=== PATIENT | female | born 1985 | race Caucasian/White ===

== ENCOUNTER 2016-10-17 06:05 | Inpatient (IN) | payer MEDICAID ==
[~2016-10-17] VITALS: Ht 137.2 cm; Wt 66.5 kg
[2016-10-17] VITALS (7 sets, daily range): BP systolic 93–108; BP diastolic 51–69; PULSE 68–78; RESP 16–18
[2016-10-17] MEDS ORDERED: PRENAT PO (06:41)
[2016-10-17] MEDS ORDERED: FERR134T PO (06:41)
[2016-10-17] MEDS: LACTATED RINGER'S 1,000 ML IV SCH ×2 (06:57→22:42)
[2016-10-17] MEDS ORDERED: CEFAZOLIN 2 GM/50 ML (PMX) 50 ML IV SCH (07:00)
[2016-10-17] MEDS ORDERED: MISOPROSTOL 200 MCG TAB PR PRN ×2 (07:00→12:00)
[2016-10-17] MEDS ORDERED: OXYTOCIN 30 UNITS/LR 500 ML IV SCH (07:00)
[2016-10-17] MEDS ORDERED: OXYTOCIN 30 UNITS/LR 500 ML IV PRN ×2 (07:00→12:00)
[2016-10-17] MEDS ORDERED: CARBOPROST 250 MCG INJ IM PRN ×2 (07:00→12:00)
[2016-10-17] MEDS ORDERED: METHYLERGONOVINE 0.2 MG INJ IM PRN ×2 (07:00→12:00)
[2016-10-17 07:21] LABS: ADD SCAN DIFF NO
[2016-10-17 07:39] LABS: ABNORMAL IP MESSAGE 1; BASOPHILS % 0.3 % (0.0-2.0); EOSINOPHILS # 0.1 10^3/ul (0.0-0.5); EOSINOPHILS % 0.9 % (0.0-7.0); HEMOGLOBIN 12.9 g/dl (12.0-16.0); LYMPHOCYTES # 1.7 10^3/ul (0.8-2.9); LYMPHOCYTES % 28.8 % (15.0-51.0); MEAN CORPUSCULAR HEMOGLOBIN 29.8 pg (29.0-33.0); MEAN CORPUSCULAR HGB CONC 33.9 g/dl (32.0-37.0); MEAN CORPUSCULAR VOLUME 87.8 fl (82.0-101.0); MEAN PLATELET VOLUME 13.9 fl (7.4-10.4); MONOCYTE # 0.5 10^3/ul (0.3-0.9); MONOCYTES % 8.3 % (0.0-11.0); NEUTROPHIL # 3.5 10^3/ul (1.6-7.5); PLATELET COUNT 100 10^3/UL (140-415); RED BLOOD COUNT 4.33 10^6/ul (4.20-5.40); RED CELL DISTRIBUTION WIDTH 14.4 % (11.5-14.5); WHITE BLOOD COUNT 5.8 10^3/ul (4.8-10.8)
[2016-10-17 07:51] LABS: INR 0.91; PARTIAL THROMBOPLASTIN TIME 25.4 Sec (25.0-35.0); PROTIME 12.3 Sec (12.2-14.2)
[2016-10-17] MEDS ORDERED: PHENYLephrine (100 MCG/ML) 5ML SYG ONE (07:59)
[2016-10-17] MEDS ORDERED: ONDANSETRON 4 MG INJ ONE (07:59)
[2016-10-17] MEDS ORDERED: morphine SULFATE/PF (10 MG/10 ML) INJ ONE (07:59)
[2016-10-17] MEDS ORDERED: OXYTOCIN 10 UNIT INJ ONE (07:59)
--- NOTE | 2016-10-17 09:39 | HP ---
Date/Time of Note Date/Time of Note DATE: 10/17/16 TIME: 09:31 OB - History Hx of Present Free Text/Dictation 30 years old female 5 para 2 history of 2 previous section with a EDC of October 24 admitted to [facility] for repeat section and bilateral tubal ligation this patient has been under the care of the [facility] and her was not complicated with gestational diabetes -induced hypertension or any other serious surgical or medical condition patient has been counseled regarding the failure rate of tubal ligation increased risk of ectopic future failure to conceive also the complication of the section for the third time including but not limited to bowel and bladder injury infection wound hematoma and hemorrhage ,she would like to proceed with the operation. o Estimated Due Date: October 24, 2016 : 5 Para: 2 Spontaneous : 2 Care: Good Care Ultrasounds: Normal mid trimester US Obstetrical Complications: None Medical Complications: None Past Family/Social History * Past Medical, Surgical, Family and Obstetric Histories reviewed from chart. Rubella: immune RPR/VDRL: Negative GBS Status: Negative HBsAG: Negative OB Admission Exam Vital Signs Vital Signs Vital Signs Date Time Temp Pulse Resp B/P Pulse Ox O2 Delivery O2 Flow Rate FiO2 10/17/16 06:39 98.1 71 108/69 Physical Exam HEENT: WNL Heart: Rhythm Normal Lungs: Clear, Equal Abdomen: WNL Extremities: Normal Reflexes: Normal Cervical Dilatation: None Effacement: 0% Station: -1 Membranes: Intact Heart Rate: 130's Accelerations: Accelerations Present Decelerations: No Decelerations Varibility: Absent Last 72 hours Lab Results CBC & BMP 10/17/16 06:15 OB Assessment/Plan Reason for admission: other (Repeat section bilateral tubal ligation) Plan: Section (Repeat section bilateral tubal ligation) ROXANNE YARBROUGH MD October 17, 2016 09:39
--- NOTE | 2016-10-17 11:07 | OPR ---
DATE OF OPERATION: 10/17/2016 PREOPERATIVE DIAGNOSES: 1. Intrauterine at 39 weeks' gestation. 2. History of previous section. 3. Request for voluntary sterilization, bilateral tubal ligation. POSTOPERATIVE DIAGNOSES: 1. Intrauterine at 39 weeks' gestation. 2. History of previous section. 3. Request for voluntary sterilization, bilateral tubal ligation. OPERATION PERFORMED: Repeat transverse low cervical section. SURGEON: Roxanne Madrid MD ETHYLBENZENE CONVERTER HELPER: James Ellsworth MD ANESTHESIA: Spinal. ANESTHESIOLOGIST: Dr. Santiago. FINDINGS: Live baby boy with the 9 and 9. Baby weighed at 3710 grams, 8 pounds 3 ounces. DETAILS OF THE PROCEDURE: Under satisfactory spinal anesthesia, the patient was prepped and draped and placed in dorsal lithotomy position. Pfannenstiel incision was done. Old scar was removed. Incision carried through the subcutaneous ti ssue. Bleeders brought under control with electrocautery. Fascia incised to the length of the inci víctor. Rectus muscle divided in midline. Peritoneum exposed, entered through a transverse incision. Exploration of abdomen shows gravid at term uterus, normal appearing tubes and ovaries Adhesions bet ween the right round ligament and anterior abdominal wall which were taken down by sharp dissection. Suture material used #0 chromic catgut. Lower segment of the uterus was freed from the adhesions. Bladder flap was developed. Transverse incision was made in the lower segment of the uterus. Amn iotic sac ruptured. Clear amniotic fluid noted. Live baby boy was delivered from unengaged vertex. Nasal oropharyngeal suction was performed. Baby handed to the team for immediate attenti on. Patient received 20 units of Pitocin. Placenta delivered manually intact. Uterine cavity cleaned w ith wet sponge and drainage established. Uterus closed in 2 layers using Monocryl #1 in continuous fashion. Bilateral tubal ligation performed by identifying the ampulla and fimbria section of the right fallo pian tube. Suture material used #0 plain catgut which was reinforced with the same suture material. Fimbriectomy was performed. The cut end of the tube was cauterized and specimen submitted to path ology. The same procedure performed for the opposite side. Peritoneal cavity irrigated with copious amount of sterile water. Sponges, needles and instruments reported to be correct. Abdominal peritoneum closed with 2-0 chromic catgut continuously. Rectus m uscle approximated with few interrupted 2-0 chromic catgut. Fascia closed with #1 PDS in a continuo us fashion. Subcutaneous tissue approximated with 2-0 chromic catgut. Skin closed with camilo. E stimated blood loss 600 mL. Urine bag contained 200 mL of clear urine. Patient tolerated the procedure well, transferred to recovery room in a good condition. Dictated By: ROXANNE STONE/MELISSA Conf#: [id number] DID#: [id number]
[2016-10-17] MEDS ORDERED: OXYCODONE/ACETAMINOPHEN (5/325) TAB PO PRN ×2 (12:00)
[2016-10-17] MEDS ORDERED: LANOLIN 7 GM TUBE TOP PRN (12:00)
[2016-10-17] MEDS ORDERED: ACETAMINOPHEN/CODEINE #3 TAB PO PRN ×2 (12:00)
[2016-10-17] MEDS ORDERED: CEFAZOLIN 1 GM/50 ML (PMX) 50 ML IVPB SCH (12:00)
[2016-10-17] MEDS ORDERED: ONDANSETRON 4 MG INJ IV PRN (12:30)
[2016-10-17] MEDS ORDERED: HYDROmorphONE 1 MG/ML SYG IV PRN ×2 (12:30)
[2016-10-17] MEDS ORDERED: PROCHLORPERAZINE 10 MG INJ IV PRN (12:30)
[2016-10-17] MEDS ORDERED: NALOXONE (0.4 MG/ML) INJ IV PRN (12:30)
[2016-10-17] MEDS ORDERED: ZOLPIDEM 5 MG TAB PO PRN (12:30)
[2016-10-17] MEDS ORDERED: DIPHENHYDRAMINE 50 MG INJ IV PRN (12:30)
[2016-10-17] MEDS: OXYTOCIN 30 UNITS/LR 500 ML IV SCH ×4 (15:02→23:44)
[2016-10-17] MEDS: KETOROLAC 30 MG INJ IV PRN (20:22)
[2016-10-17] MEDS: SENNA/DOCUSATE NA (8.6MG/50MG) TAB PO SCH (20:22)
[2016-10-18] MEDS: LACTATED RINGER'S 1,000 ML IV SCH ×3 (00:29→14:42)
[2016-10-18 00:30] VITALS: BP 98/58; RESP 18
[2016-10-18] MEDS: OXYTOCIN 30 UNITS/LR 500 ML IV SCH ×3 (03:44→11:44)
[2016-10-18 03:45] VITALS: BP 94/56; PULSE 89; RESP 18
[2016-10-18] MEDS: IBUPROFEN 600 MG TAB PO SCH ×4 (06:00→17:12)
[2016-10-18 08:00] VITALS: BP 88/49; PULSE 76; RESP 18
[2016-10-18] MEDS: SENNA/DOCUSATE NA (8.6MG/50MG) TAB PO SCH ×2 (08:14→21:12)
[2016-10-18] MEDS: KETOROLAC 30 MG INJ IV PRN (08:15)
[2016-10-18 08:32] LABS: ADD SCAN DIFF NO
[2016-10-18 08:42] LABS: ABNORMAL IP MESSAGE 1; BASOPHILS % 0.1 % (0.0-2.0); EOSINOPHILS % 0.4 % (0.0-7.0); HEMATOCRIT 32.6 % (37.0-47.0); HEMOGLOBIN 11.2 g/dl (12.0-16.0); LYMPHOCYTES # 1.2 10^3/ul (0.8-2.9); LYMPHOCYTES % 16.2 % (15.0-51.0); MEAN CORPUSCULAR HEMOGLOBIN 30.1 pg (29.0-33.0); MEAN CORPUSCULAR HGB CONC 34.4 g/dl (32.0-37.0); MEAN CORPUSCULAR VOLUME 87.6 fl (82.0-101.0); MEAN PLATELET VOLUME 13.1 fl (7.4-10.4); MONOCYTE # 0.6 10^3/ul (0.3-0.9); MONOCYTES % 8.4 % (0.0-11.0); NEUTROPHIL # 5.4 10^3/ul (1.6-7.5); NEUTROPHILS % 74.6 % (39.0-77.0); PLATELET COUNT 96 10^3/UL (140-415); RED BLOOD COUNT 3.72 10^6/ul (4.20-5.40); RED CELL DISTRIBUTION WIDTH 14.5 % (11.5-14.5); WHITE BLOOD COUNT 7.2 10^3/ul (4.8-10.8)
--- NOTE | 2016-10-18 09:47 | PN ---
Date/Time of Note Date/Time of Note DATE: 10/18/16 TIME: 09:46 OB Subjective Subjective Subjective Post day 1 Afebrile vital signs stable abdomen soft incision dry bowel sounds present but weak uterus firm ambulation recommended OB Assessment/Plan Plan: Expectant Management ROXANNE YARBROUGH MD October 18, 2016 09:47
[2016-10-18 16:00] VITALS: BP 95/52; PULSE 85; RESP 18
[2016-10-18 19:40] VITALS: BP 100/54; PULSE 78; RESP 18
[2016-10-19] MEDS: IBUPROFEN 600 MG TAB PO SCH ×4 (00:24→17:49)
[2016-10-19 04:30] VITALS: BP 102/59; PULSE 62; RESP 18
[2016-10-19 07:30] VITALS: BP 103/58; PULSE 80; RESP 19
[2016-10-19] MEDS: SENNA/DOCUSATE NA (8.6MG/50MG) TAB PO SCH ×2 (10:08→21:33)
--- NOTE | 2016-10-19 13:22 | PN ---
Date/Time of Note Date/Time of Note DATE: 10/19/16 TIME: 13:19 OB Subjective Subjective Subjective October 19, 2069 Post day 2 hospital visit She is doing well Abdomen is soft Incision is clean Current Medications Medications (Trade) Dose Ordered Sig/Jhonatan Route PRN Reason Start Time Stop Time Status Last Admin Dose Admin Lactated Ringer's 1,000 ml @ 125 mls/hr Q8H IV 10/17/16 06:42 10/18/16 17:06 DC 10/18/16 00:29 Cefazolin Sodium/ Dextrose 50 ml @ 100 mls/hr ONCE IV 10/17/16 07:00 10/17/16 11:50 DC Oxytocin/Lactated Ringer's 500 ml @ 125 mls/hr ONCE IV 10/17/16 07:00 10/17/16 11:50 DC 10/17/16 10:11 Oxytocin/Lactated Ringer's 500 ml @ 0 mls/hr ONCE PRN IV For Hemorrhage Management 10/17/16 07:00 10/17/16 11:50 DC Methylergonovine Maleate (Methergine) 0.2 mg ONCE PRN IM VAGINAL BLEEDING 10/17/16 07:00 10/17/16 11:50 DC Carboprost Tromethamine (Hemabate) 250 mcg ONCE PRN IM VAGINAL BLEEDING 10/17/16 07:00 10/17/16 11:50 DC Misoprostol (Cytotec) 1,000 mcg ONCE PRN [place] VAGINAL BLEEDING 10/17/16 07:00 10/17/16 11:50 DC Morphine Sulfate (Duramorph) 10 mg STK-MED ONCE .ROUTE 10/17/16 07:59 10/17/16 08:00 DC Ondansetron HCl (Zofran Inj) 4 mg STK-MED ONCE .ROUTE 10/17/16 07:59 10/17/16 08:00 DC Oxytocin (Oxytocin) 10 units STK-MED ONCE .ROUTE 10/17/16 07:59 10/17/16 08:00 DC Phenylephrine HCl (Angel-Synephrine Inj Syg) 500 mcg STK-MED ONCE .ROUTE 10/17/16 07:59 10/17/16 08:00 DC Acetaminophen/ Codeine Phosphate (Tylenol No.3) 1 tab Q4H PRN PO PAIN LEVEL 4-6 10/17/16 12:00 Acetaminophen/ Codeine Phosphate (Tylenol No.3) 2 tab Q4H PRN PO PAIN LEVEL 7-10 10/17/16 12:00 Oxycodone/ Acetaminophen (Percocet (5/ 325)) 1 tab Q4H PRN PO PAIN LEVEL 4-6 10/17/16 12:00 Oxycodone/ Acetaminophen (Percocet (5/ 325)) 2 tab Q4H PRN PO PAIN LEVEL 7-10 10/17/16 12:00 Ibuprofen (Motrin) 600 mg Q6 PO 10/18/16 00:00 10/19/16 11:40 Simethicone (Mylicon) 160 mg Q8H PRN PO DISTENSION/GAS/BLOATING 10/17/16 12:00 Senna/Docusate Sodium (Senokot-S) 1 tab BID PO 10/17/16 21:00 10/19/16 10:08 Lanolin (Xrx-N-Jtdevs) 1 applic BEDSIDE MEDICATION PRN TOP BEDSIDE FOR JAQUELINE TO NIPPLES 10/17/16 12:00 10/17/16 17:34 Diphtheria/ Tetanus/Acell Pertussis 0.5 ml 0.5 ml ONCE ONCE IM* 10/20/16 09:00 10/20/16 09:01 Oxytocin/Lactated Ringer's 500 ml @ 0 mls/hr ONCE PRN IV For Hemorrhage Management 10/17/16 12:00 Methylergonovine Maleate (Methergine) 0.2 mg ONCE PRN IM VAGINAL BLEEDING 10/17/16 12:00 Carboprost Tromethamine (Hemabate) 250 mcg ONCE PRN IM VAGINAL BLEEDING 10/17/16 12:00 Misoprostol 1000 mcg 1,000 mcg ONCE PRN [place] VAGINAL BLEEDING 10/17/16 12:00 Cefazolin Sodium 50 ml @ 100 mls/hr ONCE IVPB 10/17/16 12:00 10/17/16 12:29 DC 10/17/16 17:28 Oxytocin/Lactated Ringer's 500 ml @ 125 mls/hr Q4H IV 10/17/16 11:44 10/18/16 17:06 DC 10/17/16 20:25 Naloxone HCl (Narcan) 0.1 mg Q2M PRN IV FOR RESP RATE 8 OR LESS 10/17/16 12:30 10/18/16 12:29 DC Ketorolac Tromethamine (Toradol) 30 mg Q6H PRN IV PAIN 10/17/16 12:30 10/18/16 12:29 DC 10/18/16 08:15 Hydromorphone HCl (Dilaudid) 0.2 mg Q3H PRN IV PAIN LEVEL 1-5 10/17/16 12:30 10/18/16 12:29 DC Hydromorphone HCl (Dilaudid) 0.4 mg Q3H PRN IV PAIN LEVEL 6-10 10/17/16 12:30 10/18/16 12:29 DC Diphenhydramine HCl (Benadryl) 25 mg Q6H PRN IV ITCHING 10/17/16 12:30 10/18/16 12:29 DC 10/17/16 20:22 Ondansetron HCl (Zofran Inj) 4 mg Q6H PRN IV NAUSEA AND/OR VOMITING 10/17/16 12:30 10/18/16 12:29 DC Prochlorperazine (Compazine Inj) 10 mg ONCE PRN IV NAUSEA AND/OR VOMITING 10/17/16 12:30 10/18/16 12:29 DC Zolpidem Tartrate (Ambien) 5 mg HS MAY REPEAT X 1 PRN PO INSOMNIA 10/17/16 12:30 10/18/16 12:29 DC Patient is doing well, Ambulatory She is afebrile Abdomen is soft , Fundus is firm Moderate amount of lochia Breasts are soft, Nipples are intact No calf tenderness. Breast feeding the new born. NASIMA FLORES MD October 19, 2016 13:22
[2016-10-19 16:00] VITALS: BP 106/58; PULSE 78; RESP 18
[2016-10-19 20:15] VITALS: BP 104/104; PULSE 73; RESP 17
[2016-10-20 04:00] VITALS: BP 105/56; PULSE 73; RESP 19
[2016-10-20] MEDS: IBUPROFEN 600 MG TAB PO SCH ×3 (05:41→11:34)
[2016-10-20 07:45] VITALS: BP_SYST 104; PULSE 68; RESP 19
[2016-10-20] MEDS ORDERED: DIPHTH/TET/ACEL PERTUSS (ADULT) 0.5 ML VIAL IM* ONE (09:00)
[2016-10-20] MEDS: SENNA/DOCUSATE NA (8.6MG/50MG) TAB PO SCH (09:55)
--- NOTE | 2016-10-20 09:56 | PD.PPDC ---
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 Condition Patient Condition: Good Diet Diet: Resume Regular Diet Activity/Restrictions Activity: Normal Activity May Shower Wound/Drain Care Instructions Wound/Drain Care Instructions: Remove Steri Strips in 1 week Follow-up Follow-up with Physician: 4, Day/Days Provider Information: Appointment clinic in 4 days to discontinue camilo Return to clinic for [employer]IVE SERVICE Instructions: Fever greater than 101 Worsening abdominal pain Excessive Vaginal Bleeding More than 2 pads per hour Unable to tolerate diet OB Instructions: Breast Tenderness Depression Blurried Vision Headache Surgical Instructions: Incisional Drainage Incisional Redness ROXANNE YARBROUGH MD October 20, 2016 09:56
--- NOTE | 2016-10-20 10:00 | DS ---
Date/Time of Note Date/Time of Note DATE: 10/20/16 TIME: 09:57 Discharge Summary Admission/Discharge Info Admit Date/Time October 17, 2016 at 06:05 Discharge Date/Time October 20, 2016 at 10 AM Final Diagnosis Post section bilateral tubal ligation Patient Condition: Good Procedures Repeat section bilateral tubal ligation Hx of Present Illness 39 weeks history of previous request for bilateral tubal ligation at the time of section Hospital Course Uneventful good recovery Home Meds Reported Medications Ferrous Sulfate (Iron) 134 Mg Tablet, 134 MG PO BID, TAB 10/17/16 Multivit/Min/Fol Ac/Iron/Pren* ( S*) 1 Tab Tab, 1 TAB PO DAILY, TAB 10/17/16 Follow-up Plan Post instructions given recommended appointment to the clinic in 4 days to discontinue ROXANNE Worthy MD October 20, 2016 10:00
== END 2016-10-20 18:21 | disposition home or self-care (01) | DRG 766 ==
LOC: L-D 06:05 → PP1 11:59
PROVIDERS: ADMIT Obstetrics & Gynecology; ATTEND Obstetrics & Gynecology
PROC: 0UL70ZZ Occlusion of Bilateral Fallopian Tubes, Open Approach (ICD-10-PCS; 2016-10-17)
PROC: 10D00Z1 Extraction of Products of Conception, Low, Open Approach (ICD-10-PCS; principal; 2016-10-17 07:30)
DX: O34.211 Maternal care for low transverse scar from previous cesarean delivery (principal); Z30.2 Encounter for sterilization; Z3A.39 39 weeks gestation of pregnancy; Z37.0 Single live birth
CPT/HCPCS: 85025; 85610; 85730; 86592; 86850; 86900; 86901; 87340; 88302; 90715; 99464; J0690; J1200; J1885; J2274; J2370; J2405; J2590; J7120